=== PATIENT | female | born 1980 | race Caucasian/White ===

== ENCOUNTER 2023-07-10 09:54 | Emergency (ER) | payer MEDICAID ==
[~2023-07-10] VITALS: Ht 154.9 cm; Wt 65.1 kg
[2023-07-10 10:04] VITALS: O2SAT 99
[2023-07-10] MEDS ORDERED: IBUP-2029 MT (10:35)
[2023-07-10] MEDS ORDERED: AM250 PO (10:36)
[2023-07-10] MEDS ORDERED: ACETAMINOPHEN 325MG TABLET PO ONE (10:45)
[2023-07-10 10:59] VITALS: BP 124/78; PULSE 78; RESP 16; TEMP 98.7
== END 2023-07-10 11:01 | disposition home or self-care (01) ==
LOC: ER 10:21
DX: R22.0 Localized swelling, mass and lump, head (principal)
CPT/HCPCS: 81025; 99282; 99283